=== PATIENT | male | born 1985 | race Caucasian/White ===

== ENCOUNTER → 2020-06-29 16:58 | Outpatient (CLI) | payer OTHER, SELFPAY ==
[2020-06-29 19:02] LABS: HIV - WCH Non-Reactive (Nonreactive)
[2020-06-29 19:19] LABS: Chlamydia Trachomatis by PCR Negative (Negative); Neisserai gonorrhoeae by PCR Negative (Negative); Probe Check PASS; Sample Adequacy Control PASS; Specimen Processing Control PASS
--- NOTE | 2020-06-30 | FLU_PTH ---
PATIENT: MARK WATTS LOC: [facility] U#:[id number] AGE/SX: 40/M ROOM: RE06/29/[address]: [facility] : 1985 BED: DIS: SPEC #: [id number] RECD: 07/03/20 09:21 STATUS: BONNIE TONIO #: [id number] DANNY: 06/30/20 00:[address]: [facility] DEPT: CYTOLOGY RECD BY: Michael Man ENTERED: 07/03/20 09:22 SP TYPE: Fluid OTHR DR: MD Dr. Kingston Vickers, DO Tissues: Penis, NOS Procedures: Special Stain Group II Surgery Specimen Level IV Cytospin Fluid HEADER OPERATION: Penile urethral wart PRE-OP DIAGNOSIS: Penile urethral wart TISSUE SUBMITTED: Penile urethral wart DIAGNOSIS CYTOLOGY Fluid from penile urethra (cytospin and cell block): Rare benign squamous epithelial cells. See comment. AM:[email or web address] 07/04/20 COMMENT There is no evidence of viral cytopathic change. Clinical correlation is suggested. CYTOLOGY STUDY Slides are reviewed. CYTOLOGY GROSS Received is 20 ml of cloudy fluid labeled with the patient's name and and designated per the requisition as penile urethral wart. Submitted for cytology preparation including cell block. / lazaro 07/03/20 TC:5 CPT: 41638, 71325
[2020-06-30 03:34] LABS: Rapid Plasmin Reagin (RPR) NONREACTIVE (NONREACTIVE)
== END ==
PROVIDERS: PCP Family Medicine
DX: R46.89 Other symptoms and signs involving appearance and behavior (principal); A63.0 Anogenital (venereal) warts
CPT/HCPCS: 36415; 86592; 86703; 87491; 87591; 88108; 88305; 88313

== ENCOUNTER 2020-09-08 13:29 | Emergency (ER) | payer OTHER, SELFPAY ==
[2020-09-08 13:30] VITALS: BP 123/80; PULSE 86; RESP 16; TEMP 36.9; O2SAT 98; BMI 25.8
--- NOTE | 2020-09-08 13:38 | ED.RN ---
pT WANTS A DRUG TEST DONE WE WILL JUST DO IT, I DONT WANT TO GIVE THEM ANY REASON TO DENY IT
--- NOTE | 2020-09-08 14:09 | RAD_ITS ---
STUDY: X-RAY - LEFT TIBIA AND FIBULA REASON FOR EXAM: Left calf injury from a hot metal tho. TECHNIQUE: 2 view(s) of the tibia and fibula were obtained. COMPARISON: None. FINDINGS: Normal visualized tibia. Normal visualized fibula. There are punctate soft tissue calcifications at the medial aspect of the mid tibial diaphysis. RAD/Tibia & Fibula 2 Views IMPRESSION: Soft tissue calcifications in the medial calf. Electronically Signed: Bernabe Sidhu MD at 14:39 EST Tel , Service support ,
[2020-09-08 14:26] VITALS: BP 123/80; PULSE 86; RESP 16; TEMP 36.9; O2SAT 98
--- NOTE | 2020-09-08 15:10 | ED.VISSUMM ---
- ER Visit Summary Date of Service: 09/08/20 Chief Complaint: Injury to left calf History of Present Illness: The patient is a [address] Pickett. He works as a mig tig welder. States that he was using a welding tho that was 1/8 of an inch and approximately 1-1/2 inches long that got stuck and he was wiggling it and it came off and entered his left calf. States that it was stopped by the pool and fell out. Did not have to pull this out. Complains of an aching pain is 10 of 10 at worst and 3-10 currently. Is worsened by walking relieved by rest. His tetanus is up-to-date. Physical Examination: Vitals: Stable. Afebrile. General: Well-nourished and well-developed. Head: Normocephalic atraumatic. Neck: Supple, no lymphadenopathy. No JVD. Nontender. Cardiovascular: Regular rate and rhythm. No murmurs. Respiratory: No respiratory distress. Clear to auscultation bilaterally. Abdominal: Soft, nontender, nondistended, normal bowel sounds. No guarding, rebound, or peritoneal signs. Back: Nontender. Extremities: Puncture wound to the medial side of the left calf. He has moderate tense palpation over the calf itself. He has no pain with passive dorsiflexion of his foot. He has normal sensation light touch and a 2+ dorsalis pedis pulse. The compartment is soft. Skin: Normal color, no rash. Neurologic: Alert and oriented ?3. Cranial nerves II through XII are intact. Normal strength and sensation. Psych: Normal affect. Test Results: Clinical Impression(s) from Imaging Studies Tibia/Fibula X-Ray 09/08/20 14:09 IMPRESSION: Soft tissue calcifications in the medial calf. Electronically Signed: Bernabe Sidhu MD at 14:39 EST Tel , Service support , Emergency Department Course and Treatment: Patient does not have evidence of compartment syndrome at this time. He was given Tylenol and Keflex. He had his wound cleansed and a dressing was placed. The metallic foreign bodies on the x-ray are likely cauterized to the muscle tissue and cannot be removed by irrigation. The wound itself is a puncture wound that is not amenable to irrigation. Treatment Plan: Patient was discussed with Dr. De Los Santos who reviewed the x-ray and agrees that it is not going to review removed with irrigation, but does not need to go to the operating room. States that this is low risk for compartment syndrome and would like patient to follow-up with corporate care. Patient be discharged with Percocet and Keflex. Instructed to follow-up with corporate care in 3 to 5 days for another exam. The signs and symptoms of compartment syndrome were discussed and he is instructed return for these. Disposition: To home in improved and stable condition. Impression: 1. Thermal puncture wound left calf with retained metallic foreign bodies. This note was generated with [employer] dictation software. It may contain incorrect words, spelling, and punctuation that were not noted in review of the chart prior to signing ED Disposition - Plan for ED Patient: Disposition: Home or Assisted Living Instructions: ED Puncture Wound (General) Prescriptions: Cephalexin [Keflex] 500 mg PO Q6 #28 cap Transmission Status: Received by LEONARDO CLARKE-Valdemar ELAM Oxycodone HCl/Acetaminophen [Percocet 5/325] 1 tab PO Q6H PRN PRN 3 Days #12 tab PRN Reason: Pain Prescription Printed Referrals: [facility] [GROUP OF PHYSICIANS] - 3-5 Days
[2020-09-08] MEDS: Cephalexin 500 MG Capsule PO (15:22)
[2020-09-08] MEDS: Acetaminophen 500 MG Tablet 1000 MG PO (15:22)
== END 2020-09-08 15:29 | disposition home or self-care (01) ==
LOC: ED 14:34
PROVIDERS: Emergency Provider Emergency Medicine; PCP Family Medicine
DX: S81.842A Puncture wound with foreign body, left lower leg, initial encounter (principal); W31.89XA Contact with other specified machinery, initial encounter; Y93.89 Activity, other specified; Y92.89 Other specified places as the place of occurrence of the external cause; Y99.0 Civilian activity done for income or pay
CPT/HCPCS: 73590; 99283

== ENCOUNTER → 2022-11-11 | Outpatient (CLI) | payer BC, SELFPAY ==
[2022-11-11 20:49] LABS: Chlamydia Trachomatis by PCR Negative (Negative); Neisserai gonorrhoeae by PCR Negative (Negative); Probe Check PASS; Sample Adequacy Control PASS; Specimen Processing Control PASS
== END | disposition home or self-care (01) ==
LOC: LABSPEC 16:33
PROVIDERS: PCP Family Medicine; Referring Provider Family Medicine; Visit Provider Family Medicine
DX: N45.1 Epididymitis (principal)
CPT/HCPCS: 87491; 87591

== ENCOUNTER → 2024-08-03 | Outpatient (CLI) | payer BC, SELFPAY ==
[2024-08-03 12:26] LABS: Absolute Neutrophil Count 3.8 X10^3/uL (2.0-7.7); Basophil# 0.03 X10^3/uL; Basophil% 0.5 % (0-1); Eosinophil# 0.14 X10^3/uL; Eosinophils% 2.3 % (0-5); Hematocrit 43.1 % (40-54); Hemoglobin 14.2 g/dL (13.0-16.5); Mean Corp Hgb Conc 32.9 g/dL (32-36); Mean Corpuscular Hgb 29.5 pg (27.0-32.0); Mean Corpuscular Volume 89.4 fL (80-94); Mean Platelet Vol. 10.2 fl (6.2-12.0); Monocyte% 6.5 % (0-10); NRBC Flagged by Analyzer 0 % (0-5); Neutrophil # 3.81 X10^3/uL (2.7-7.7); Neutrophil % 61.4 % (47-70); Platelet Count 286 K/mm3 (150-450); RBC Distribution Width CV 12.9 % (11.6-14.6); RBC Distribution Width SD 42.3 fl (35.1-43.9); Red Blood Count 4.82 M/mm3 (4.6-6.2); White Blood Count 6.2 K/mm3 (4.4-11.0)
[2024-08-03 12:42] LABS: Vitamin D,25 Hydroxy 26.5 ng/mL
[2024-08-03 12:58] LABS: ALB/GLOB Ratio 1.1 RATIO (0.9-2.4); AST(SGOT) 21 U/L (15-37); Alanine Aminotransfer ALT/SGPT 28 U/L (16-61); Albumin, Serum 3.9 g/dL (3.2-5.0); Alkaline Phosphatase 48 U/L (45-117); Anion Gap 3 (5-15); BUN 13 mg/dL (7-18); BUN/Creat Ratio 13.7 RATIO (10-20); Chloride 109 mmol/L (98-107); Cholesterol 149 mg/dL (200); Creatinine, Serum 0.95 mg/dL (0.70-1.30); EST Glomerular Filtration Rate 93 mL/min (>60); Est Glom Filt Rate - Afr Amer 113 mL/min (>60); Globulin 3.4 g/dL (2.2-4.2); Glucose 59 mg/dL (74-106); High Density Lipoprotein 43 mg/dL; Potassium 3.7 mmol/L (3.5-5.1); Protein, Total 7.3 g/dL (6.4-8.2); Sodium Level 142 mmol/L (136-145); Triglycerides 57 mg/dL; Very Low Density Lipoprotein 11 mg/dL (5-40)
[2024-08-06 21:07] LABS: Insulin Level 13.1 uIU/mL (2.6-24.9); Testosterone, % Free 2.79 % (1.50-4.20); Testosterone, Free 11.27 ng/dL (5.00-21.00); Testosterone, Total 404 ng/dL (264-916)
== END | disposition home or self-care (01) ==
LOC: BFHLAB 09:18
PROVIDERS: PCP Family Medicine; Visit Provider Family Medicine
DX: Z00.00 Encounter for general adult medical examination without abnormal findings (principal); R53.83 Other fatigue; R73.01 Impaired fasting glucose; E55.9 Vitamin D deficiency, unspecified; Z12.5 Encounter for screening for malignant neoplasm of prostate
CPT/HCPCS: 36415; 80053; 80061; 82306; 83525; 84153; 84402; 84403; 85025; G0103